=== PATIENT | male | born 1970 | race Caucasian/White ===

== ENCOUNTER 2022-06-12 11:36 | Emergency (ER) | payer BC ==
[~2022-06-12 11:36] MED LIST: ASPIRIN EC81 MG PO; DILT-XR180 MG PO; LISINOPRIL20 MG PO; PRAVACHOL40 MG PO
[2022-06-12] MEDS ORDERED: IBUPROFEN800 MG PO (17:13)
[2022-06-12] MEDS ORDERED: BACTROBAN OINT22 GM EXT (17:16)
== END 2022-06-12 17:54 | disposition home or self-care (01) ==
LOC: ER1 11:36
DX: S93.402A Sprain of unspecified ligament of left ankle, initial encounter (principal); S80.852A Superficial foreign body, left lower leg, initial encounter; S70.311A Abrasion, right thigh, initial encounter; S80.812A Abrasion, left lower leg, initial encounter; Z23 Encounter for immunization; I10 Essential (primary) hypertension; W11.XXXA Fall on and from ladder, initial encounter
CPT/HCPCS: 73590; 73610; 73630; 73700; 90471; 90715; 99284